=== PATIENT | female | born 1995 | race African-American/Black ===

== ENCOUNTER 2018-09-10 00:08 | Emergency (ER) | payer SELFPAY ==
[2018-09-10] MEDS ORDERED: Lorazepam 2 MG/ML VIAL ONE (00:50)
[2018-09-10] MEDS ORDERED: Metoclopramide HCl 10 MG/2 ML VIAL ONE (00:51)
[2018-09-10] MEDS ORDERED: levETIRAcetam In NaCl (Iso-Os) 1,500 MG in Premix Bag 1 BAG IVPB SCH (01:00)
== END 2018-09-10 02:25 | disposition home or self-care (01) ==
LOC: ERS 00:08
DX: G40.909 Epilepsy, unspecified, not intractable, without status epilepticus (principal); J45.909 Unspecified asthma, uncomplicated; Z79.899 Other long term (current) drug therapy
CPT/HCPCS: 96365; 96367; 96375; J1953; J2060; J2765